=== PATIENT | male | born 1995 | race African-American/Black ===

== ENCOUNTER 2017-01-23 18:00 | Emergency (ER) | payer MEDICAID ==
[~2017-01-23] VITALS: Ht 188 cm; Wt 80.0 kg
[2017-01-23 18:01] VITALS: BP 136/65; PULSE 64; RESP 15; TEMP 98.4; O2SAT 98
[2017-01-23] MEDS ORDERED: IBUPROFEN 800 MG TAB PO ONE (18:15)
--- NOTE | 2017-01-23 18:21 | PD ---
HPI . Right hand injury Chief Complaint: Injury Time Seen by Provider: 18:10 Travel History International Travel<30 days: No Contact w/Intl Traveler<30days: No Traveled to known affect area: No History of Present Illness HPI 21-year-old male patient presents emergency department for evaluation of right hand injury that occurred last when he punched a wall. The right hand is edematous and painful. The patient denies any major medical history. The patient doesn't take any daily medication. FOR[facility]LY [facility] Social History Tobacco Use: No Allergies-Medications (Allergen,Severity, Reaction): Coded Allergies: No Known Allergies (Unverified , 01/23/17) Review of Systems Except as stated in HPI: all other systems reviewed are Neg Physical Exam Narrative GENERAL: Well-nourished, well-developed 21-year-old male patient in no acute distress. Nontoxic appearing. SKIN: Focused skin assessment warm/dry. HEAD: Normocephalic. Atraumatic. EYES: No scleral icterus. No injection or drainage. NECK: Supple, trachea midline. No JVD or lymphadenopathy. CARDIOVASCULAR: Regular rate and rhythm without murmurs, gallops, or rubs. RESPIRATORY: Breath sounds equal bilaterally. No accessory muscle use. GASTROINTESTINAL: Abdomen soft, non-tender, nondistended. MUSCULOSKELETAL: Edematous right hand. No obvious deformity, ecchymosis, erythema, or cyanosis. Right hand neurovascularly intact. Cap refill less than 3 seconds. Data Data Last Documented VS Vital Signs Date Time Temp Pulse Resp B/P (MAP) Pulse Ox O2 Delivery O2 Flow Rate FiO2 01/23/17 18:01 98.4 64 15 136/65 (88) 98 Orders Orders Hand, Complete ([id number]) (01/23/17 18:11) Ice/Cold Pack (01/23/17 18:11) Ibuprofen (Motrin) (01/23/17 18:15) MDM Medical Decision Making Medical Screen Exam Complete: Yes Emergency Medical Condition: Yes Differential Diagnosis Frontal diagnoses include but not limited to right hand contusion, hand sprain, right hand fracture Narrative Course 21-year-old male patient with no major medical history presents emergency department after punching a wall last for evaluation of right hand swelling and pain. Right hand is neurovascularly intact. Patient states he has not taken anything for pain today. Patient denies any other physiological complaints at this time. X-ray of the right hand ordered and pending. Ice applied to the right hand. Ibuprofen ordered for pain. X-ray shows an acute oblique displaced fracture of the proximal fifth metacarpal. Dr Field called and he would like the patient's right arm but in a volar splint that extends down to the tip of the fingertips with lots of padding between the fingers and discharged home with instructions to call Dr. Guillaume on Wednesday. Patient will be given a prescription for naproxen and discharged home with instructions for rice therapy to right hand. Last Impressions Hand X-Ray 01/23/171810 Signed Impressions: Service Date/Time: Wednesday, January 23, 2017 18:19 - CONCLUSION: There is an acute oblique displaced fracture of the proximal fifth metacarpal, as above. Nathaniel Galindo MD Diagnosis Primary Impression: Closed right hand fracture Qualified Codes: S62.91XA - Unspecified fracture of right wrist and hand, initial encounter for closed fracture Referrals: Chester Guillaume III, MD Patient Instructions: General Instructions, Hand Fracture (ED) Additional Instructions: Please return to emergency department if your symptoms return or worsen. Call Dr. Guillaume on Wednesday. Take medications as prescribed. Rice therapy to right hand, rest, ice, keep splint in place and elevate hand when resting. Med/Other Pt SpecificInfo: Prescription(s) given Scripts Naproxen Sodium (Naproxen Sodium) 220 Mg Tab 440 MG PO BID Y for Pain Management, #20 TAB 0 Refills Prov: Devi Burns 01/23/17 Disposition: DISCHARGE HOME Condition: Stable Devi Burns Jan 23, 2017 18:21
--- NOTE | 2017-01-23 18:33 | RADRPT ---
EXAM DATE/TIME: 01/23/2017 18:19 [place] COMPARISON: No previous studies available for comparison. INDICATIONS : Punched a wall 2 days ago. MEDICAL HISTORY : None. SURGICAL HISTORY : None. ENCOUNTER: Initial ACUITY: 2 days PAIN SCORE: 7/10 LOCATION: Right lateral side of hand FINDINGS: 3 views of the right hand demonstrate an oblique displaced fracture of the proximal fifth metacarpal extending through the lateral metaphysis and epiphysis and extending into the carpometacarpal joint. The distal fragment is displaced medially by 3 mm and has mild associated proximal migration. No othe r fracture or dislocation is identified. No soft tissue abnormality or radiopaque foreign body is brenda ntified. CONCLUSION: There is an acute oblique displaced fracture of the proximal fifth metacarpal, as above. Nathaniel Galindo MD on January 23, 2017 at 18:29 Board Certified Radiologist. This report was verified electronically.
[2017-01-23] MEDS ORDERED: MEDI220T PO (18:52)
[2017-01-23] MEDS ORDERED: NORC5TAB PO (18:58)
[2017-02-03] MEDS ORDERED: HYDR-3288 PO (09:18)
[2017-02-03] MEDS ORDERED: CEPH-460 PO (09:18)
== END 2017-01-23 19:35 | disposition home or self-care (01) ==
LOC: NEPD 18:00
DX: S62.91XA Unspecified fracture of right hand, initial encounter for closed fracture (principal); W22.09XA Striking against other stationary object, initial encounter
CPT/HCPCS: 26600; 73130

== ENCOUNTER → 2017-02-03 | Day surgery (SDC) | payer MEDICAID ==
[~2017-02-03] VITALS: Ht 188 cm; Wt 79.5 kg
[~2017-02-03] MED LIST: ACETAMINOPHEN/HYDROcodone 325 MG/10 MG TAB ONE; BUPIVACAINE HCL PF 0.5% 30 ML VIAL ONE; CEPH-460 PO; CHLORHEXIDINE GLUCONATE 2 % 1 PACK (2 CLOTHS) TOPICAL PRN; HYDR-3288 PO; LACTATED RINGER'S 1000 ML INJ 1,000 ML IV ONE; LACTATED RINGER'S 1000 ML IV PRN; LIDOCAINE HCL 2% 50 ML VIAL ONE; MEDI220T PO; METOPROLOL TARTRATE 25 MG TAB PO PRN; NEOMYCIN/POLYMYXIN 1 ML G.U. IRRIGANT ONE; NORC5TAB PO; POVIDONE IODINE 5% (ANTISEPSIS KIT) 4 APPLICATIONS EACH NARE PRN; PROPOFOL 200 MG/20 ML AMP IV ONE; PROPOFOL 200 MG/20 ML AMP ONE; SODIUM CHLORID 0.9% 500 ML IV PRN; ceFAZolin 1,000 MG/NS 100 ML IV SCH
[2017-02-03 09:16] VITALS: PULSE 60
--- NOTE | 2017-02-03 09:44 | MP ---
cc: CHESTER GUILLAUME III, M.D. DATE OF SURGERY 02/03/2017 PREOPERATIVE DIAGNOSIS Right fifth metacarpal fracture. PROCEDURE Right fifth metacarpal open reduction and pinning. SURGEON Chester Guillaume III, MD TOURNIQUET TIME 21 minutes at 200 mmHg. PROCEDURE The patient was brought to the operating room and placed supine on the operating room table. After the correct site and side of the surgery were verified by members of each team in the room multiple times including the patient and myself and after adequate preoperative time-out was performed to everyone's satisfaction, the right upper extremity was prepped and draped in the traditional sterile surgical fashion. A 50/50 mixture of 2% plain lidocaine and 0.5% plain Marcaine was infiltrated in the skin and subcutaneous tissue down to the fifth metacarpal where the injury was located. 15 minutes of effort in trying to reduce the fifth metacarpal proved to be futile. Therefore, the limb was exsanguinated with an Steven wrap and a highly placed, well-padded axillary tourniquet was inflated to 200 mmHg for a total of 21 minutes. A 1-cm incision dorsally over the fifth CMC joint was made. Blunt dissection was performed. The Ambia elevator was then inserted in the fifth CMC joint proximal to the fracture as part of the fifth metacarpal and it was levered back into position within 1-2 mm. Two separate 0.045 cm K-wires at different angles and a third 0.035 cm K-wire were advanced through the fifth into the fourth metacarpal securing reduction. Passive range of motion examination was performed and there was no evidence of any malrotation or mal-angulation. The pins were tailored to length, cut and bent. Jurgan's balls were applied. A liter's worth of saline was used to then flush out the operative wound and the skin edges were reapproximated using running 4-0 nylon suture. The hand and arm were thoroughly cleansed and dried. Additional local anesthetic was injected for postoperative pain control. A well-padded, well-molded bulky ulnar sided splint was made in the usual fashion, short-arm length. The axillary tourniquet was already released. The hand and arm and all the fingers had become soft, pink, warm and had brisk capillary refill of less than 2 seconds. The patient tolerated the procedure well. MD PORTILLO Patel III/GABE /9:26 AM /9:38 AM
[2017-02-03 10:15] VITALS: PULSE 56; TEMP 98.1
[2017-02-03 11:20] VITALS: BP 128/64; PULSE 58; RESP 14; O2SAT 100
== END | disposition home or self-care (01) ==
LOC: PHSDC 06:21
PROVIDERS: ATTEND Orthopaedic Surgery Hand Surgery
DX: S62.396B Other fracture of fifth metacarpal bone, right hand, initial encounter for open fracture (principal); W22.8XXA Striking against or struck by other objects, initial encounter; Y93.89 Activity, other specified
CPT/HCPCS: 01830; 26615; 76000; J0690; J3010; J7120